=== PATIENT | female | born 1975 | race Caucasian/White ===

== ENCOUNTER → 2022-05-06 | Outpatient (CLI) | payer BC, MEDICARE, OTHER ==
[~2022-05-06] MED LIST: ASCO1ER PO; HYDACE10B PO; IBUPROFEN 200MG; Keflex500 MG PO; MULVITA PO; MULVITMINE PO; PENVK500 PO; Ultram50 MG PO
[2022-05-06 11:30] LABS: Adenovirus F 40/41 Not Detected (NOT DETECT); Astrovirus Not Detected (NOT DETECT); Campylobacter Sp Not Detected (NOT DETECT); Cryptosporidium Not Detected (NOT DETECT); Cyclospora Cayetanensis Not Detected (NOT DETECT); E. Coli O157 Not Detected (NOT DETECT); Entamoeba Histolytica Not Detected (NOT DETECT); Enteroaggregative E. coli-EAEC Not Detected (NOT DETECT); Enteropathogenic E. coli-EPEC Not Detected (NOT DETECT); Enterotoxigenic E. coli-ETEC Not Detected (NOT DETECT); Giardia Lamblia Not Detected (NOT DETECT); Norovirus GI/GII Not Detected (NOT DETECT); Plesiomonas Shigelloides Not Detected (NOT DETECT); Rotavirus A Not Detected (NOT DETECT); Salmonella Sp Not Detected (NOT DETECT); Sapovirus Not Detected (NOT DETECT); Shiga Toxin-prod E. coli-STEC Not Detected (NOT DETECT); Shigella/Enteroin E. coli-EIEC Not Detected (NOT DETECT); Vibrio Cholerae Not Detected (NOT DETECT); Vibrio Sp Not Detected (NOT DETECT); Yersinia Enterocolitica Not Detected (NOT DETECT)
== END | disposition home or self-care (01) ==
LOC: LAB SHORT 05:00
PROVIDERS: Physician Assistant Medical
DX: R19.7 Diarrhea, unspecified (principal)
CPT/HCPCS: 83993; 87507

== ENCOUNTER → 2022-08-09 | Outpatient (CLI) | payer BC, MEDICARE ==
[~2022-08-09] MED LIST changes: +DIM PLUS CDG C1 EACH; +FISH OIL 1,2001 EAC7; +GABA100; +PROG100; +TESTOSTERONE50 MG; +Vitamin B-12100 MCG
== END ==
LOC: LAB 07:49 → LAB SHORT 07:49 → PLD 07:49
DX: B35.1 Tinea unguium (principal)
CPT/HCPCS: 88304; 88312